=== PATIENT | male | born 1955 | race Caucasian/White ===

== ENCOUNTER 2023-03-13 06:56 | Day surgery (SDC) | payer OTHER, SELFPAY ==
[2023-03-11 08:21] VITALS: BMI 27.6
[2023-03-13 07:14] VITALS: BP 134/82; PULSE 140; RESP 20; TEMP 36.4; O2SAT 99; BMI 27.6
--- NOTE | 2023-03-13 08:01 | SUR.PREOP ---
Patient is in rapid a-fib. Does not take medication for this. Patient procedure has been canceled. Discussed with patient in great detail by anesthesia regarding further follow-up prior to rescheduling surgery. States understanding. informed.
== END 2023-03-13 07:00 | disposition home or self-care (01) ==
PROVIDERS: PCP Physician Assistant; Referring Provider Surgery; Visit Provider Surgery
DX: K40.20 Bilateral inguinal hernia, without obstruction or gangrene, not specified as recurrent (principal); I48.91 Unspecified atrial fibrillation; Z53.09 Procedure and treatment not carried out because of other contraindication
CPT/HCPCS: 49650; 82962; 93005; 93010